=== PATIENT | female | born 1975 | race Caucasian/White ===

== ENCOUNTER 2017-01-10 17:25 | Emergency (ER) | payer OTHER ==
[2017-01-10] MEDS ORDERED: AMOX-CLAV 875-1 EACH PO (19:16)
[2017-01-10] MEDS ORDERED: GABAPENTIN100 M2 (19:17)
[2017-01-10] MEDS ORDERED: MEDROL4 M2 PO (19:33)
[2017-01-10] MEDS ORDERED: IBUPROFEN800 M1 PO (19:33)
[2017-01-10] MEDS ORDERED: PERCOCET 5-3251 EACH PO (19:33)
[2017-01-10] MEDS ORDERED: CYCLOBENZAPRINE10 M1 PO (19:33)
--- NOTE | 2017-01-10 19:33 | ED NECK/BACK PAIN COMPLAINT ---
History of Present Illness General Chief Complaint: General Adult Stated Complaint: PINCHED NERVE IN NECK, X 5 DAYS Source: patient Exam Limitations: no limitations Vital Signs & Intake/Output Vital Signs & Intake/Output Vital Signs Date Time Temp Pulse Resp B/P Pulse O2 O2 Flow FiO2 Ox Delivery Rate 01/10 1939 99.1 75 18 125/77 96 Room Air 01/10 1913 Room Air 01/10 1740 97.1 90 20 138/78 98 ED Intake and Output 01/11 0000 01/10 1200 Intake Total 0 Output Total Balance 0 Intake, Oral 0 Allergies Coded Allergies: Quinolones (TINY BUMPS ALL OVER BODY AND INSIDE MOUTH 01/10/17) levofloxacin (From LEVAQUIN) (TINY BUMPS ALL OVER BODY - INSIDE MOUTH EVERYWHERE 01/10/17) Reconcile Medications Amoxicillin/Clavulanate Potass (Amox-Clav 875-125 MG Tablet) 875 MG-125 MG TABLET 1 TAB PO BID ANTIBIOTIC (Reported) Cyclobenzaprine HCl 10 MG TABLET 1 TAB PO TID SPASMS Gabapentin (Unknown Strength) CAPSULE (Unknown Dose) UNKNOWN (Reported) Ibuprofen 800 MG TABLET 1 TAB PO TID PAIN Methylprednisolone. (Medrol) 4 MG TAB.DS.PK 1 DP PO AD NECK/BACK PAIN 6 on day 1 then reduce by one tablet daily until gone Oxycodone HCl/Acetaminophen (Percocet 5-325 MG Tablet) 5 MG-325 MG TABLET 1-2 TAB PO Q6P PRN pain Triage Note: PER PT PAIN TO RT SHOULDER RADIATING TO NECK, SOMETIMES TINGLING, STIFF WITH TURNING TO RT. PAIN X 5 DAYS INTERMITTANT NUMBNESS LAST DOSE MOTRIN YESTERDAY. NO SPECIFIC INJURY BUT DID DO SOME STRETCHING Triage Nurses Notes Reviewed? yes Onset: Abrupt Duration: day(s): (4), constant, continues in ED Timing: recent history Quality/Severity: moderate, severe Location: C-spine Loss of Consciousness: no loss of consciousness : No Patient currently breastfeeds: No HPI: 41-year-old female comes into emergency room for further evaluation of right- sided neck pain that radiates down her right arm. Since is becoming on for the past 4 days. Pain is worse with any type of range of motion. Patient reports she gets some numbness and tingling in her hands. Patient reports that it is uncomfortable and certain sleeping positions. She denies any trauma that she can remember. Denies any chest pain or shortness of breath. No prior history of neck problems. No prior cardiac history. (RACHEAL MONTILLA) Past History Travel History Traveled to [place] past 21 day No Medical History Any Pertinent Medical History? see below for history Neurological: NONE EENT: NONE Cardiovascular: NONE Respiratory: NONE Gastrointestinal: NONE Hepatic: NONE Renal: NONE Musculoskeletal: NONE Psychiatric: NONE Endocrine: NONE Surgical History Surgical History: non-contributory Psychosocial History What is your primary language Peruvian Tobacco Use: Current Daily Use Daily Tobacco Use Amount/Type: =< 4 Cigarettes daily Family History Hx Contributory? No (RACHEAL MONTILLA) Review of Systems Review of Systems Constitutional: Reports: no symptoms. Eyes: Reports: no symptoms. Ears, Nose, Throat, Mouth: Reports: no symptoms. Respiratory: Reports: no symptoms. Cardiovascular: Reports: no symptoms. Gastrointestinal/Abdominal: Reports: no symptoms. Musculoskeletal: Reports: see HPI. Skin: Reports: no symptoms. Neurological/Psychological: Reports: no symptoms. All Other Systems: Reviewed and Negative (RACHEAL MONTILLA) Physical Exam Physical Exam General Appearance: well developed/nourished, mild distress Head: atraumatic Eyes: Bilateral: normal appearance. Ears, Nose, Throat, Mouth: hearing grossly normal, moist mucous membrane Neck: normal inspection, supple, full range of motion, paraspinous muscle tender Respiratory: normal breath sounds, no respiratory distress Cardiovascular: regular rate/rhythm Back: normal inspection Extremities: normal range of motion Neurologic/Psych: awake, alert, oriented x 3, normal mood/affect Skin: intact, normal color, warm/dry Diagram Body: 1) Tenderness with palpation (RACHEAL MONTILLA) Progress Differential Diagnosis: aortic dissection, carotid dissection, herniated disc, myofascial strain, pyelo/UTI, sciatica, spinal cord inj, thoracic outlet syn, T/ L spine injury, ureterolithiasis Plan of Care: see below Comments: 01/10/2017 8:43:39 PM Pain is very consistent with muscular pain versus radiculopathy. Patient has no motor weakness in her upper extremities. No chest pain or shortness of breath. Patient was referred to primary care doctor here through [facility]. Return if any other concerns. Patient understands and agrees with plan of care. (RACHEAL MONTILLA) Departure Departure Disposition: HOME OR SELF CARE Condition: Stable Clinical Impression Primary Impression: Cervical radiculopathy Secondary Impressions: Muscle spasms of neck Referrals: PATIENT HAS NO PRIMARY CARE DR (PCP/Family) Additional Instructions: Take Medrol Dosepak, Percocet, Flexeril, and ibuprofen as prescribed. Follow-up with primary care Dr. provided Dr. smith from [facility]. Return to emergency room immediately if any other concerns worsening symptoms. Please go over all results of today's visit with your primary care doctor. Contact your primary care doctor to let them know you were here in the emergency room. There may be nonspecific findings which may not be related to your visit today here in the emergency room but may require further evaluation and chronic monitoring by your primary care doctor. If you had a laceration today the chance of foreign body always remains. You should follow-up with your primary care doctor for recheck in 3-5 days for a wound check. If you had an x-ray done there is a chance that a fracture could have been missed on initial read and you should follow-up with your primary care doctor for repeat x-rays if symptoms persist. If your blood pressure was elevated here in the emergency room please have rechecked by her primary care doctor within the next 48 hours by your primary care doctor. If you were prescribed a narcotic here in the emergency room or any type of controlled substances you're not allowed to drive while taking this medication or operate any type of heavy machinery. Narcotics can make you feel lightheaded dizziness nausea and can cause constipation. You may need to picker packer a stool softener. Thank you for choosing [facility] emergency room. Please return to the emergency room immediately if you have any other concerns worsening of symptoms. Departure Forms: Customer Survey General Discharge Information Prescriptions: Current Visit Scripts Oxycodone HCl/Acetaminophen (Percocet 5-325 MG Tablet) 1-2 TAB PO Q6P PRN pain #15 TAB Cyclobenzaprine HCl 1 TAB PO TID #20 TAB Ibuprofen 1 TAB PO TID #30 TAB Methylprednisolone. (Medrol) 1 DP PO AD #1 DP 6 on day 1 then reduce by one tablet daily until gone (RACHEAL MONTILLA) PA/PLASTER BLOCK LAYER Co-Sign Statement Statement: ED Attending supervision documentation- [] I saw and evaluated the patient. I have also reviewed all the pertinent lab results and diagnostic results. I agree with the findings and the plan of care as documented in the PA's/PLASTER BLOCK LAYER's documentation. [x] I have reviewed the ED Record and agree with the PA's/PLASTER BLOCK LAYER's documentation. [] Additions or exceptions (if any) to the PAs/PLASTER BLOCK LAYER's note and plan are summarized below: [] (ТАТЬЯНА PITTS,JE Elmore)
[2017-01-10 19:39] VITALS: BP 125/77
== END 2017-01-10 19:45 ==
LOC: ERH 17:25
DX: M54.12 Radiculopathy, cervical region (principal); M62.838 Other muscle spasm